=== PATIENT | female | born 1955 | race Caucasian/White ===

== ENCOUNTER → 2016-07-06 | Outpatient (CLI) | payer BC ==
[~2016-07-06] MED LIST: CAMBIA PO; DICL25CA4 PO; GABA600T14 PO; LEVO25TA4 PO; OXYC5CAP4 PO; SINCALIDE (KINEVAC) 5 MCG ONE; TOPI50TA4 PO; TRAM50TA2 PO; ZOLP10TA PO
== END | disposition home or self-care (01) ==
LOC: PETCFH 08:25
PROVIDERS: ATTEND Internal Medicine Gastroenterology
DX: K83.8 Other specified diseases of biliary tract (principal); R10.11 Right upper quadrant pain; Z90.49 Acquired absence of other specified parts of digestive tract
CPT/HCPCS: 78227; A9537; J2805

== ENCOUNTER → 2017-04-07 | Outpatient (CLI) | payer BC ==
[~2017-04-07] MED LIST changes: +BIOT25005 PO; +DICL75TA2 PO; +DICY10CA3 PO; +LYSI100010 PO; +OXYC5CAP2 PO; -OXYC5CAP4 PO; +RIZA10TA20 PO; -SINCALIDE (KINEVAC) 5 MCG ONE; -TOPI50TA4 PO; +TOPI50TA8 PO
== END | disposition home or self-care (01) ==
LOC: STAR 09:04
PROVIDERS: ATTEND Surgery
DX: Z02.9 Encounter for administrative examinations, unspecified (principal)

== ENCOUNTER 2017-04-14 08:00 | Day surgery (SDC) | payer BC ==
[~2017-04-14] VITALS: Ht 167.6 cm; Wt 75.0 kg
[2017-04-14] MEDS ORDERED: LACTATED RINGERS 1,000 ML IV SCH (08:19)
[2017-04-14] MEDS ORDERED: BUPIVACAINE/PF 0.5% ONE ×2 (10:14→10:16)
[2017-04-14] MEDS ORDERED: EPINEPHRINE 1 MG/ML, 1ML ONE ×2 (10:14→10:16)
[2017-04-14] MEDS ORDERED: MIDAZOLAM 1 MG/ML, 2ML ONE (10:27)
[2017-04-14] MEDS ORDERED: PROPOFOL 10 MG/ML, 20ML ONE (10:28)
[2017-04-14] MEDS ORDERED: FENTANYL PF 100 MCG/2ML ONE ×2 (10:28→11:48)
[2017-04-14] MEDS ORDERED: ROCURONIUM 10 MG/ML,10ML ONE (10:28)
[2017-04-14] MEDS ORDERED: SUCCINYLCHOLINE 20 MG/ML, 10ML ONE (10:28)
[2017-04-14] MEDS ORDERED: KETOROLAC 30 MG/1 ML IV PRN (10:30)
[2017-04-14] MEDS ORDERED: ACETAMINOPHEN 325 MG TABLET PO PRN (10:30)
[2017-04-14] MEDS ORDERED: MIDAZOLAM 1 MG/ML, 2ML IV PRN (10:30)
[2017-04-14] MEDS ORDERED: METOCLOPRAMIDE 5 MG/ML, 2ML IV PRN (10:30)
[2017-04-14] MEDS ORDERED: ONDANSETRON 2MG/ML, 2ML IVPush PRN (10:30)
[2017-04-14] MEDS ORDERED: ALBUTEROL SULFATE 2.5 MG/3 ML NPPB PRN (10:30)
[2017-04-14] MEDS ORDERED: EPHEDRINE 50 MG/ML, 1ML IVPush PRN (10:30)
[2017-04-14] MEDS ORDERED: hydrALAzine 20 MG/ML, 1ML IV PRN (10:30)
[2017-04-14] MEDS ORDERED: METOPROLOL 1 MG/ML, 5ML IV PRN (10:30)
[2017-04-14] MEDS ORDERED: HYDROcodone/APAP 7.5-325MG/15ML UDC PO PRN (10:30)
[2017-04-14] MEDS ORDERED: OXYcodone 5 MG/5 ML ORAL.SOL UDC PO PRN (10:30)
[2017-04-14] MEDS ORDERED: HYDROmorphone 1 MG/ML, 1ML IV PRN (10:30)
[2017-04-14] MEDS ORDERED: PROMETHAZINE 25 MG/ML, 1ML IV PRN (10:30)
[2017-04-14] MEDS ORDERED: LABETALOL 5MG/ML, 20ML IV PRN (10:30)
[2017-04-14] MEDS ORDERED: MEPERIDINE/PF 25MG/0.5ML IVPush PRN (10:30)
[2017-04-14] MEDS ORDERED: BUPIVACAINE/PF 0.5% INFIL ONE (10:48)
[2017-04-14] MEDS ORDERED: EPINEPHRINE 1 MG/ML, 1ML INFIL ONE (10:49)
[2017-04-14] MEDS ORDERED: DEXAMETHASONE 4 MG/ML, 1ML ONE (11:08)
[2017-04-14] MEDS ORDERED: ONDANSETRON 2MG/ML, 2ML ONE (11:08)
[2017-04-14] MEDS ORDERED: KETAMINE 10 MG/ML, 20ML ONE (11:22)
[2017-04-14] MEDS ORDERED: ACETAMINOPHEN 650 MG/20.3 ML UDC ONE (11:48)
[2017-04-14] MEDS ORDERED: OXYcodone 5 MG/5 ML ORAL.SOL UDC ONE ×2 (11:48→11:57)
[2017-04-14] MEDS ORDERED: KETOROLAC 30 MG/1 ML ONE (11:49)
[2017-04-14] MEDS: FENTANYL PF 100 MCG/2ML IV PRN ×2 (11:50→12:05)
[2017-04-14] MEDS ORDERED: HYDROmorphone 2 MG/ML, 1ML ONE (12:35)
== END 2017-04-14 15:25 ==
LOC: OUT 08:00
PROVIDERS: ATTEND Surgery
DX: K43.2 Incisional hernia without obstruction or gangrene (principal); E03.9 Hypothyroidism, unspecified; Z98.890 Other specified postprocedural states; Z88.6 Allergy status to analgesic agent; Z88.1 Allergy status to other antibiotic agents
CPT/HCPCS: 49565; 49568; C1760; C1781; J0171; J0330; J1100; J1170; J1885; J2250; J2405; J2704; J3010; J3490; J7120